=== PATIENT | female | born 1955 | race Caucasian/White ===

== ENCOUNTER 2022-12-01 10:41 | Outpatient (CLI) | payer MEDICARE | END 2022-12-01 10:42 | disposition home or self-care (01) | LOC: CSHMAMMO 10:41 | PROVIDERS: ATTEND Internal Medicine | DX: Z12.31 Encounter for screening mammogram for malignant neoplasm of breast (principal); Z78.0 Asymptomatic menopausal state | CPT/HCPCS: 77063; 77067; 77080 ==